=== PATIENT | female | born 1990 | race African-American/Black ===

== ENCOUNTER 2017-07-19 08:32 | Emergency (ER) | payer MEDICAID, OTHER ==
[2017-07-19] MEDS ORDERED: Dexamethasone 4 mg/ml Vial ONE (09:14)
[2017-07-19] MEDS ORDERED: Bicillin LA 1.2 MILLION UNITS/2 ML SYRINGE ONE (10:21)
== END 2017-07-19 10:58 | disposition home or self-care (01) ==
LOC: ERS 08:32
DX: J02.0 Streptococcal pharyngitis (principal); F32.9 Major depressive disorder, single episode, unspecified; F44.81 Dissociative identity disorder; F17.210 Nicotine dependence, cigarettes, uncomplicated; Z79.899 Other long term (current) drug therapy
CPT/HCPCS: 87430; 96372; J0561; J1100

== ENCOUNTER 2017-10-28 08:07 | Emergency (ER) | payer OTHER ==
--- NOTE | 2017-10-28 09:41 | RAD ---
CHEST TWO VIEWS: History: Cough. Comparison: 2009 FINDINGS: The lungs are clear. No pneumothorax or effusion. Cardiac silhouette and mediastinal contours are wit hin normal limits. No acute osseous abnormality. IMPRESSION: No acute intrathoracic abnormality. POS: [facility]
== END 2017-10-28 09:53 | disposition home or self-care (01) ==
LOC: ERS 08:07
DX: J20.9 Acute bronchitis, unspecified (principal); F32.9 Major depressive disorder, single episode, unspecified; F17.210 Nicotine dependence, cigarettes, uncomplicated; Z79.899 Other long term (current) drug therapy
CPT/HCPCS: 71046; 94640; J7620

== ENCOUNTER 2017-12-07 04:20 | Emergency (ER) | payer OTHER | END 2017-12-07 04:46 | disposition home or self-care (01) | LOC: ERS 04:20 | DX: J06.9 Acute upper respiratory infection, unspecified (principal); F32.9 Major depressive disorder, single episode, unspecified; F17.210 Nicotine dependence, cigarettes, uncomplicated | CPT/HCPCS: 99282 ==

== ENCOUNTER 2017-12-20 22:06 | Emergency (ER) | payer OTHER | END 2017-12-20 22:59 | disposition home or self-care (01) | LOC: ERS 22:06 | DX: K13.21 Leukoplakia of oral mucosa, including tongue (principal); F32.9 Major depressive disorder, single episode, unspecified; F17.210 Nicotine dependence, cigarettes, uncomplicated | CPT/HCPCS: 99282 ==

== ENCOUNTER 2018-04-26 14:06 | Emergency (ER) | payer OTHER ==
[2018-04-26] MEDS ORDERED: Ibuprofen 100 MG/5 ML UDCUP ONE (14:31)
--- NOTE | 2018-04-26 15:49 | RAD ---
FOUR VIEWS OF THE LEFT ELBOW: INDICATION: Left elbow pain. COMPARISON: None. FINDINGS: No acute fracture or subluxation is evident. No joint capsular distention is evident. POS: [facility]
== END 2018-04-26 15:26 | disposition home or self-care (01) ==
LOC: ERS 14:06
DX: S50.02XA Contusion of left elbow, initial encounter (principal); F17.210 Nicotine dependence, cigarettes, uncomplicated; W01.0XXA Fall on same level from slipping, tripping and stumbling without subsequent striking against object, initial encounter
CPT/HCPCS: 99406

== ENCOUNTER 2018-07-07 11:24 | Emergency (ER) | payer OTHER | END 2018-07-07 14:11 | disposition home or self-care (01) | LOC: ERS 11:24 | DX: R09.89 Other specified symptoms and signs involving the circulatory and respiratory systems (principal); F17.210 Nicotine dependence, cigarettes, uncomplicated | CPT/HCPCS: 99283 ==

== ENCOUNTER 2018-07-14 11:54 | Emergency (ER) | payer OTHER ==
[2018-07-14] MEDS ORDERED: Ondansetron ODT 4 MG TAB ONE (12:34)
[2018-07-14] MEDS ORDERED: Metoclopramide HCl 10 MG/2 ML VIAL ONE (13:14)
[2018-07-14 13:44] LABS: Bilirubin Negative (Negative); Blood, Urine Negative (Negative); Clarity CLEAR (Clear); Glucose, Urine (Dipstick) Negative (Negative); Leukocyte Negative (Negative); Nitrite Negative (Negative); Protein, Urine (Dipstick) Trace mg/dL (Neg-Trace); Specific Gravity, Urine 1.042 (1.002-1.036)
[2018-07-14 13:48] LABS: Pregnancy Test - Urine (BHCG) Negative (Negative); Pregu Control Background? CLEAR/WHITE (CLR/WHITE); Pregu Control Bar Appear? YES (CONTROL BAR); Specific Gravity 1.042 (1.002-1.036)
[2018-07-14] MEDS ORDERED: Ketorolac Tromethamine 30 MG/ML VIAL ONE (14:12)
== END 2018-07-14 14:20 | disposition home or self-care (01) ==
LOC: ERS 11:54
DX: R11.2 Nausea with vomiting, unspecified (principal); F32.9 Major depressive disorder, single episode, unspecified; F17.210 Nicotine dependence, cigarettes, uncomplicated; Z79.899 Other long term (current) drug therapy
CPT/HCPCS: 81003; 81025; 87086; 87804; 96365; 96375; J1885; J2765; Q0162

== ENCOUNTER 2019-01-12 11:55 | Emergency (ER) | payer OTHER, SELFPAY ==
[2019-01-12 12:53] LABS: Bilirubin Negative (Negative); Blood, Urine Negative (Negative); Clarity CLEAR (Clear); Glucose, Urine (Dipstick) Negative (Negative); Leukocyte Negative (Negative); Nitrite Negative (Negative); Protein, Urine (Dipstick) Negative (Neg-Trace); Specific Gravity, Urine 1.021 (1.002-1.036); Urobilinogen 0.2 mg/dL (0.2-1.0)
[2019-01-12 12:54] LABS: Pregnancy Test - Urine (BHCG) Negative (Negative); Pregu Control Background? CLEAR/WHITE (CLR/WHITE); Pregu Control Bar Appear? YES (CONTROL BAR); Specific Gravity 1.021 (1.002-1.036)
[2019-01-12 13:14] LABS: #Basophils 0.1 thou/uL (0.0-0.2); #Eosinphils 0.1 thou/uL (0.0-0.7); #Lymphocytes 3.1 thou/uL (1.20-3.40); #Monocytes 0.4 thou/uL (0.11-0.59); #Neutrophils 3.7 thou/uL (1.40-6.50); %Eosinophils 1.9 % (0.0-10.0); %Lymphocytes 42.4 % (21.0-51.0); %Neutrophils 49.8 % (42.0-75.0); Hemoglobin 12.4 g/dL (12.0-16.0); Mean Corpuscular Hemoglobin 22.5 pg (27.0-31.0); Mean Corpuscular Volume 72.6 fL (78.0-98.0); Mean Platelet Volume 7.8 fL (7.4-10.4); Platelet Count 277 thou/uL (130-400); RBC Distribution Width 13.7 % (11.5-14.5); Red Blood Cell (RBC) Count 5.53 mill/uL (4.20-5.40); White Blood Cell (WBC) Count 7.3 thou/uL (4.8-10.8)
[2019-01-12 13:28] LABS: ALT (SGPT) 11 U/L (8-55); AST (SGOT) 15 U/L (5-34); Albumin 4.1 g/dL (3.5-5.0); Alkaline Phosphatase 69 U/L (40-150); Anion Gap 9 mmol/L (10-20); BUN (Urea Nitrogen) 8 mg/dL (7.0-18.7); Bilirubin, Total 0.4 mg/dL (0.2-1.2); Calc. Creatinine Clearance 0 mL/min (70-130); Calcium 9.7 mg/dL (7.8-10.44); Carbon Dioxide 28 mmol/L (22-29); Chloride 108 mmol/L (98-107); Estimated GFR-MDRD Greater than 90; Globulin 2.8 g/dL (2.4-3.5); Glucose 82 mg/dL (70-105); MDiff Complete? YES; Microcytosis SLIGHT = 6-15 cells (100X) (0-5/hpf); Platelet Morphology Comment Appears Adequate; Potassium 4.5 mmol/L (3.5-5.1); Protein, Total 6.9 g/dL (6.0-8.3); Sodium 140 mmol/L (136-145)
--- NOTE | 2019-01-12 13:56 | CT ---
CT HEAD NONCONTRAST DATE: 01/12/19 HISTORY: Headache. COMPARISON: 02/17/12. FINDINGS: There is no evidence of acute intracranial hemorrhage or infarct. The ventricles appear normal in siz e, shape, and position. There is no mass effect or shift of midline structures. Visualized paranasal sinuses remain well aerated. IMPRESSION: No acute intracranial abnormalities are demonstrated. POS: [facility]
[2019-01-12] MEDS ORDERED: diphenhydrAMINE 50 MG/ML VIAL ONE (14:13)
[2019-01-12] MEDS ORDERED: Prochlorperazine Maleate 5 MG TAB ONE (14:13)
[2019-01-12] MEDS ORDERED: Ketorolac Tromethamine 30 MG/ML VIAL ONE (14:13)
== END 2019-01-12 14:55 | disposition home or self-care (01) ==
LOC: ERS 11:55
DX: R51 Headache (principal); M54.5 Low back pain; R11.10 Vomiting, unspecified; F32.9 Major depressive disorder, single episode, unspecified; Z79.899 Other long term (current) drug therapy; F17.210 Nicotine dependence, cigarettes, uncomplicated
CPT/HCPCS: 36415; 70450; 80053; 81003; 81025; 85025; 87804; 96374; 96375; J1200; J1885; Q0164

== ENCOUNTER 2019-10-14 21:35 | Emergency (ER) | payer SELFPAY ==
[2019-10-14] MEDS ORDERED: diphenhydrAMINE 50 MG/ML VIAL ONE (23:26)
[2019-10-14] MEDS ORDERED: Ketorolac Tromethamine 30 MG/ML VIAL ONE (23:26)
[2019-10-14] MEDS ORDERED: Prochlorperazine 10 MG/2 ML VIAL IVP SCH (23:30)
== END 2019-10-15 00:30 | disposition home or self-care (01) ==
LOC: ERS 21:35
DX: R51 Headache (principal); F17.210 Nicotine dependence, cigarettes, uncomplicated; F32.9 Major depressive disorder, single episode, unspecified; Z79.899 Other long term (current) drug therapy
CPT/HCPCS: 96361; 96374; 96375; J0780; J1200; J1885

== ENCOUNTER 2020-03-23 09:24 | Emergency (ER) | payer OTHER, SELFPAY | END 2020-03-23 10:02 | disposition home or self-care (01) | LOC: ERS 09:24 | DX: K21.9 Gastro-esophageal reflux disease without esophagitis (principal); F32.9 Major depressive disorder, single episode, unspecified; R11.2 Nausea with vomiting, unspecified; F17.210 Nicotine dependence, cigarettes, uncomplicated; Z79.899 Other long term (current) drug therapy | CPT/HCPCS: 99283 ==